=== PATIENT | female | born 1935 | race Caucasian/White ===

== ENCOUNTER 2016-12-16 07:25 | Emergency (ER) | payer MEDICARE ==
[~2016-12-16] VITALS: Ht 157.5 cm; Wt 65.0 kg
[~2016-12-16 07:25] MED LIST: ACTO35TA PO; DARV PO; FOSI20 PO; NAPR550 PO; PROT40TA PO; VAGI25TA4 PV
[2016-12-16 07:27] VITALS: BP 173/70; PULSE 76; RESP 20; TEMP 98.3; O2SAT 97
--- NOTE | 2016-12-16 07:55 | PD ---
HPI Chief Complaint: Complaint Time Seen by Provider: 07:49 Travel History International Travel<30 days: No Contact w/Intl Traveler<30days: No Traveled to known affect area: No History of Present Illness HPI 81-year-old female presents the emergency department with history of dysuria, chills, and hematuria since yesterday. Patient denies nausea, vomiting , or abdominal pain. She has no flank pain. Patient has no history of kidney stones. He can states she's had similar symptoms in the past with urinary tract infections. She resides in [place]. Her dysuria pain is 2/10 at best. She is allergic to amoxicillin, Cipro, and Zithromax. PFSH Past Medical History Diminished Hearing: No Genitourinary: Yes (UTI) Hypertension: Yes Tetanus Vaccination: > 5 Years Influenza Vaccination: No ?: Not Menopausal: Yes Past Surgical History Other Surgery: Yes (VARICOSE VEIN) Social History Alcohol Use: Yes (seldom) Tobacco Use: No Substance Use: No Allergies-Medications (Allergen,Severity, Reaction): Coded Allergies: Amoxicillin (Verified Allergy, Unknown, UNKNOWN , 12/16/16) Cipro (Verified Allergy, Unknown, UNKNOWN , 12/16/16) Zithromax (Verified Allergy, Unknown, UNKNOWN, 12/16/16) Reported Meds & Prescriptions Reported Meds & Active Scripts Active Pyridium (Phenazopyridine HCl) 100 Mg Tab 100 Mg PO Q8H PRN Macrodantin (Nitrofurantoin Macrocrystal) 100 Mg Cap 100 Mg PO BID Reported Losartan (Losartan Potassium) 50 Mg Tab 50 Mg PO DAILY Vagifem Vaginal (Estradiol Vaginal) 10 Mcg Vagtab 10 Mcg VAGINAL 2XWEEK Review of Systems Except as stated in HPI: all other systems reviewed are Neg General / Constitutional: Positive: Chills, No: Fever Eyes: No: Visual changes HENT: No: Headaches Cardiovascular: No: Chest Pain or Discomfort Respiratory: No: Shortness of Breath Gastrointestinal: No: Abdominal Pain Genitourinary: Positive: Dysuria, Hematuria, No: Urgency, Frequency, Nocturia Musculoskeletal: No: Pain Skin: No Rash Neurologic: No: Weakness Psychiatric: No: Depression Endocrine: No: Polydipsia Hematologic/Lymphatic: No: Easy Bruising Physical Exam Narrative GENERAL: Patient appears no acute distress. SKIN: Warm and dry. Normal color. Normal turgor. HEAD: Atraumatic. Normocephalic. EYES: Pupils equal and round. No scleral icterus. No injection or drainage. ENT: No nasal bleeding or discharge. Mucous membranes pink and moist. Pharynx is clear. Airway is patent. NECK: Trachea midline. Supple and nontender. CARDIOVASCULAR: Regular rate and rhythm. RESPIRATORY: No accessory muscle use. Clear to auscultation. Breath sounds equal bilaterally. GASTROINTESTINAL: Abdomen soft, non-tender, nondistended. Hepatic and splenic margins not palpable. No CVA tenderness. MUSCULOSKELETAL: Extremities without clubbing, cyanosis, or edema. No obvious deformities. NEUROLOGICAL: Awake and alert. No obvious cranial nerve deficits. Motor grossly within normal limits. Five out of 5 muscle strength in the arms and legs. Normal speech. PSYCHIATRIC: Appropriate mood and affect; insight and judgment normal. Data Data Last Documented VS Vital Signs Date Time Temp Pulse Resp B/P Pulse Ox O2 Delivery O2 Flow Rate FiO2 12/16/16 07:27 98.3 76 20 173/70 97 Room Air Orders Urinalysis - C+S If Indicated (12/16/16 07:35) Urine Culture (12/16/16 07:50) Labs Laboratory Tests Test 12/16/16 07:50 Urine Color RED Urine Turbidity HAZY Urine pH 7.0 Urine Specific Ralls 1.016 Urine Protein 300 mg/dL Urine Glucose (UA) NEG mg/dL Urine Ketones NEG mg/dL Urine Occult Blood MOD Urine Nitrite NEG Urine Bilirubin NEG Urine Urobilinogen LESS THAN 2.0 MG/DL Urine Leukocyte Esterase SMALL Urine RBC /hpf Urine WBC /hpf Urine WBC Clumps RARE Microscopic Urinalysis Comment CULTURE INDICATED MDM Medical Decision Making Medical Screen Exam Complete: Yes Emergency Medical Condition: Yes Differential Diagnosis Dysuria. Urinary tract infection. Hematuria. Possible kidney or bladder cancer. Narrative Course Patient is medically stable at time of exam. Urine is collected and sent to the lab. Patient is felt to have a urinary tract infection with hematuria. Patient will be treated with Macrodantin 100 mg twice a day 7 days. Patient is also given Pyridium 100 mg 3 times a day when necessary dysuria. # 12. Urine culture is pending. Patient should follow-up with her primary care physician later this week to ensure improvement. Patient can return to the emergency Department with worsening symptoms if necessary. Diagnosis Primary Impression: Urinary tract infection Qualified Code: N30.01 - Acute cystitis with hematuria Referrals: Primary Care Physician call for appointment Patient Instructions: Dysuria (ED), General Instructions, Hematuria (ED) Additional Instructions: Patient is felt to have a urinary tract infection with hematuria. Patient will be treated with Macrodantin 100 mg twice a day 7 days. Patient is also given Pyridium 100 mg 3 times a day when necessary dysuria. # 12. Urine culture is pending. Patient should follow-up with her primary care physician later this week to ensure improvement. Patient can return to the emergency Department with worsening symptoms if necessary. Med/Other Pt SpecificInfo: Prescription(s) given Scripts Phenazopyridine (Pyridium)100 Mg [id number] Mg PO Q8H PRN (DYSURIA) #12 TAB Ref 0 Prov:Sean Gruber MD 12/16/16 Nitrofurantoin Macrocrystal (Macrodantin)100 Mg Hir526 Mg PO BID #14 CAP Ref 0 Prov:Sean Gruber MD 12/16/16 Disposition: 01 DISCHARGE HOME Condition: Stable Daljit Burleson Dec 16, 2016 07:55
[2016-12-16] MEDS ORDERED: PHEN0.4T PO (07:56)
[2016-12-16] MEDS ORDERED: MACR100C3 PO (07:56)
[2016-12-16] MEDS ORDERED: FOSI20TA PO (08:06)
[2016-12-16] MEDS ORDERED: VAGI10TA VAGINAL (08:06)
[2016-12-16] MEDS ORDERED: LOSA50TA PO (08:07)
[2016-12-16 08:21] LABS: BLOOD, URINE MOD (NEG); GLUCOSE,URINE NEG (NEG); KETONE, URINE NEG (NEG); NITRITE,URINE NEG (NEG)
[2016-12-16 08:23] LABS: COMMENT (UR) CULTURE INDICATED; CULTURE IF INDICATED CULTURE INDICATED; URINE COLOR RED (YELLW/STRAW)
== END 2016-12-16 08:34 | disposition home or self-care (01) ==
LOC: NEPK 07:25
DX: N30.01 Acute cystitis with hematuria (principal); B96.20 Unspecified Escherichia coli [E. coli] as the cause of diseases classified elsewhere
CPT/HCPCS: 81001; 87077; 87086; 87186; 99284

== ENCOUNTER 2017-04-07 18:27 | Emergency (ER) | payer MEDICARE ==
[~2017-04-07] VITALS: Ht 154.9 cm; Wt 65.5 kg
[~2017-04-07 18:27] MED LIST changes: -ACTO35TA PO; -DARV PO; -FOSI20 PO; +LOSA50TA PO; +MACR100C3 PO; -NAPR550 PO; +PHEN0.4T PO; -PROT40TA PO; +VAGI10TA VAGINAL; -VAGI25TA4 PV
[2017-04-07 18:37] VITALS: BP 177/74; PULSE 60; RESP 18; TEMP 97.7; O2SAT 97
[2017-04-07] MEDS ORDERED: ZOFR4TAB PO (19:26)
[2017-04-07] MEDS ORDERED: HYDR-3533 PO (19:26)
--- NOTE | 2017-04-07 19:26 | PD ---
HPI Chief Complaint: Abdominal Pain Time Seen by Provider: 18:58 Travel History International Travel<30 days: No Contact w/Intl Traveler<30days: No Traveled to known affect area: No History of Present Illness HPI The patient is an 81-year-old female that complains of right upper quadrant pain earlier tonight that lasted about an hour. The pain did not radiate to her scapula. She says she did not have any nausea or vomiting. The patient had an ultrasound at [facility] in [facility] but the results are unknown. She had an ultrasound here in 2007 which was unremarkable. She has no pain, nausea, vomiting or abdominal tenderness now. She denies any fever. She has basically asymptomatic. She went to an urgent care Center and they told her to get a CAT scan here. PFS Past Medical History Cardiovascular Problems: Yes (HTN) Diminished Hearing: No Genitourinary: Yes (UTI) Hypertension: Yes Tetanus Vaccination: Unknown ?: Not Menopausal: Yes Past Surgical History Surgical History: No Previous Surgery Other Surgery: Yes (VARICOSE VEIN) Social History Alcohol Use: Yes (seldom) Tobacco Use: No Substance Use: No Allergies-Medications (Allergen,Severity, Reaction): Coded Allergies: amoxicillin (Unverified Allergy, Unknown, UNKNOWN , 01/29/17) azithromycin (Unverified Allergy, Unknown, UNKNOWN, 01/29/17) ciprofloxacin (Unverified Allergy, Unknown, UNKNOWN , 01/29/17) Reported Meds & Prescriptions Reported Meds & Active Scripts Active Reported Losartan (Losartan Potassium) 50 Mg Tab 50 Mg PO DAILY Vagifem Vaginal (Estradiol Vaginal) 10 Mcg Vagtab 10 Mcg VAGINAL 2XWEEK Review of Systems Except as stated in HPI: all other systems reviewed are Neg Physical Exam Narrative GENERAL: The patient is alert, oriented 3 in no apparent distress. Her vital signs show blood pressure 177/74 but otherwise normal. SKIN: Focused skin assessment warm/dry. HEAD: Atraumatic. Normocephalic. EYES: Pupils equal and round. No scleral icterus. No injection or drainage. ENT: No nasal bleeding or discharge. Mucous membranes pink and moist. NECK: Trachea midline. No JVD. CARDIOVASCULAR: Regular rate and rhythm. No murmur appreciated. RESPIRATORY: No accessory muscle use. Clear to auscultation. Breath sounds equal bilaterally. GASTROINTESTINAL: Abdomen soft, non-tender, nondistended. Hepatic and splenic margins not palpable. No guarding or rebound is present. MUSCULOSKELETAL: No obvious deformities. No clubbing. No cyanosis. No edema. NEUROLOGICAL: Awake and alert. No obvious cranial nerve deficits. Motor grossly within normal limits. Normal speech. PSYCHIATRIC: Appropriate mood and affect; insight and judgment normal. Data Data Last Documented VS Vital Signs Date Time Temp Pulse Resp B/P (MAP) Pulse Ox O2 Delivery O2 Flow Rate FiO2 04/07/17 18:37 97.7 60 18 177/74 (108) 97 MDM Medical Decision Making Medical Screen Exam Complete: Yes Emergency Medical Condition: Yes Medical Record Reviewed: Yes Differential Diagnosis Gallbladder colic resolved, abdominal pain unknown etiology which has resolved, ulcer pain, nephrolithiasis pain resolved, Narrative Course The patient has abdominal pain which is resolved. She was offered a CAT scan because the urgent care center recommended one. She is totally asymptomatic and a CAT scan is very unlikely to change treatment. She has an ultrasound in [facility] which is more recent but the results of this are unknown. She should follow-up with her primary care physician who is on the staff at [facility] regarding this pain. She is totally asymptomatic at this time and can go home. She declined the CAT scan. Diagnosis Primary Impression: Abdominal pain of unknown etiology Additional Instructions: Follow-up with Dr. Prince Pitts about this abdominal pain. It may be that he will want a CAT scan or repeat ultrasound. We will give you a prescription for Lortab 5 and Zofran should this pain come on again. Med/Other Pt SpecificInfo: Prescription(s) given Scripts Ondansetron (Zofran) 4 Mg Tab 4 MG PO Q6HR Y for NAUSEA OR VOMITING, #21 TAB 0 Refills Prov: Zhou Lucas MD 04/07/17 Hydrocodone-Acetaminophen (Lortab) 5-325 Mg Tab 1 TAB PO Q4H Y for PAIN, #20 TAB 0 Refills Prov: Zhou Lucas MD 04/07/17 Disposition: 01 DISCHARGE HOME Condition: Stable Zhou Lucas MD Apr 07, 2017 19:26
== END 2017-04-07 19:40 | disposition home or self-care (01) ==
LOC: PHED 18:27
DX: R10.11 Right upper quadrant pain (principal); I10 Essential (primary) hypertension
CPT/HCPCS: 99284

== ENCOUNTER → 2017-06-13 | Day surgery (SDC) | payer MEDICARE ==
[~2017-06-13] VITALS: Ht 160 cm; Wt 63.5 kg
[~2017-06-13] MED LIST changes: +CHLORHEXIDINE GLUCONATE 2 % 1 PACK (2 CLOTHS) TOPICAL PRN; +HYALURONIDASE/LIDOCAINE/BUPIVACAINE 5 ML SYR LEFT EYE ONE; +HYDR-3516 PO; +LACTATED RINGER'S 1000 ML IV PRN; +LIDOCAINE HCL 1% PF 30 ML VIAL ONE; -MACR100C3 PO; +METOPROLOL TARTRATE 25 MG TAB PO PRN; -PHEN0.4T PO; +POVIDONE IODINE 5% (ANTISEPSIS KIT) 4 APPLICATIONS EACH NARE PRN; +PROPARACAINE HCL 0.5% OPHT SOLN 15 ML BTL LEFT EYE ONE; +PROPOFOL 200 MG/20 ML AMP ONE; +SODIUM CHLORID 0.9% 500 ML INJ 500 ML ONE; +TOBRAMYCIN/DEXAMETHASONE OPTH OINT 3.5 GM TUBE ONE; +VITATAB11 PO; +ZOFR4TAB PO
[2017-06-13 08:02] VITALS: PULSE 55
[2017-06-13] MEDS: PHENYLEPHRINE HCL 10% OPTH SOLN 5 ML BTL LEFT EYE SCH ×4 (08:05→08:20)
[2017-06-13] MEDS: TROPICAMIDE 1% OPHT SOLN 15 ML BTL LEFT EYE SCH ×4 (08:05→08:20)
[2017-06-13] MEDS: FLURBIPROFEN 0.03% OPHT SOLN 2.5 ML BTL LEFT EYE SCH ×4 (08:05→08:20)
[2017-06-13] MEDS: CYCLOPENTOLATE HCL 1% OPHT SOLN 2 ML BTL LEFT EYE SCH ×4 (08:05→08:20)
[2017-06-13 08:34] VITALS: PULSE 53
[2017-06-13 09:42] VITALS: TEMP 96.8
[2017-06-13 10:00] VITALS: BP 137/62; PULSE 47; RESP 14; O2SAT 99
--- NOTE | 2017-06-13 10:37 | MP ---
cc: DEEPAK SAGASTUME M.D. Corrected Copy: 06/21/17 [facility] # [id number] DATE: 06/13/2017 PREOPERATIVE DIAGNOSIS: Visually significant cataract left eye. POSTOPERATIVE DIAGNOSIS: Visually significant cataract left eye. OPERATION: Phacoemulsification with posterior chamber lens implantation, left eye. SURGEON: Deepak Sagastume MD ANESTHESIA: Retrobulbar with MAC. COMPLICATIONS: None. PROCEDURE: After informed consent was obtained, the patient was brought into the operative suite and placed on appropriate monitors by the Anesthesia Service. The patient had received a prior retrobulbar injection of local anesthetic by the Anesthesia Service in the holding area. The patient's operative eye was then prepped and draped in the usual sterile fashion. A wire lid speculum was placed. A paracentesis incision was made in the peripheral cornea with a 1 mm sarah keratome. The anterior chamber was filled with viscoelastic. The anterior chamber was then entered through a stepped, clear corneal incision using a sharp 3 mm sarah keratome. A circular tear capsulorrhexis was then made with a bent needle cystitome. Following hydrodissection of the lens nucleus with balanced saline, phacoemulsification of the nucleus was performed using a modified chopping technique. The remaining cortex was removed with irrigation/aspiration. The prior two procedures were both performed using the handpieces of the [employer] phaco unit. The capsular bag was then filled with viscoelastic. The intraocular lens was then injected into the capsular bag and positioned. The type of intraocular lens and its power can be found elsewhere in this chart. The remaining viscoelastic was then removed from the anterior chamber with the IA handpiece. The anterior chamber was reformed with balanced saline. The wound was then closed securely with stromal hydration. It was found to be watertight to an intraocular pressure of at least 30 mmHg by palpation. A small amount of balanced salt solution was then removed through the paracentesis site and the intraocular pressure at the end of the case was approximately 20 by palpation. All drapes were then removed. TobraDex ointment was then placed in the eye, which was closed beneath a semi-pressure patch dressing. The patient tolerated this procedure well and left the operating room awake and alert. The patient is to follow-up in my office in the morning. MD MARTHA Lynch/SSB /9:46 AM /8:49 AM
== END | disposition home or self-care (01) ==
LOC: PHSDC 06:33
PROVIDERS: ATTEND Optometrist Occupational Vision
DX: H26.9 Unspecified cataract (principal)
CPT/HCPCS: 00142; 66984; J7040; V2632

== ENCOUNTER → 2017-08-01 | Day surgery (SDC) | payer MEDICARE ==
[~2017-08-01] VITALS: Ht 157.5 cm; Wt 64.0 kg
[~2017-08-01] MED LIST changes: +CYCLOPENTOLATE HCL 1% OPHT SOLN 2 ML BTL RIGHT EYE SCH; +FLURBIPROFEN 0.03% OPHT SOLN 2.5 ML BTL RIGHT EYE SCH; -HYALURONIDASE/LIDOCAINE/BUPIVACAINE 5 ML SYR LEFT EYE ONE; +HYALURONIDASE/LIDOCAINE/BUPIVACAINE 5 ML SYR RIGHT EYE ONE; +PHENYLEPHRINE HCL 10% OPTH SOLN 5 ML BTL RIGHT EYE SCH; -PROPARACAINE HCL 0.5% OPHT SOLN 15 ML BTL LEFT EYE ONE; +PROPARACAINE HCL 0.5% OPHT SOLN 15 ML BTL RIGHT EYE ONE; -SODIUM CHLORID 0.9% 500 ML INJ 500 ML ONE; +SODIUM CHLORID 0.9% 500 ML IV PRN; +TROPICAMIDE 1% OPHT SOLN 15 ML BTL RIGHT EYE SCH; -VITATAB11 PO; -ZOFR4TAB PO
[2017-08-01 07:45] VITALS: PULSE 43
[2017-08-01 08:20] VITALS: PULSE 53
[2017-08-01 09:40] VITALS: BP 138/46; PULSE 50; RESP 16; TEMP 97.2; O2SAT 98
--- NOTE | 2017-08-02 09:48 | MP ---
cc: DEEPAK SAGASTUME M.D. [facility] NUMBER: [id number] DATE OF SURGERY: 08/01/2017 PREOPERATIVE DIAGNOSIS: Visually significant cataract right eye. POSTOPERATIVE DIAGNOSIS: Visually significant cataract right eye. OPERATION: Phacoemulsification with posterior chamber lens implantation, right eye. SURGEON: Deepak Sagastume MD ANESTHESIA: Retrobulbar with MAC. COMPLICATIONS: None. PROCEDURE: After informed consent was obtained, the patient was brought into the operative suite and placed on appropriate monitors by the Anesthesia Service. The patient had received a prior retrobulbar injection of local anesthetic by the Anesthesia Service in the holding area. The patient's operative eye was then prepped and draped in the usual sterile fashion. A wire lid speculum was placed. A paracentesis incision was made in the peripheral cornea with a 1 mm sarah keratome. The anterior chamber was filled with viscoelastic. The anterior chamber was then entered through a stepped, clear corneal incision using a sharp 3 mm sarah keratome. A circular tear capsulorrhexis was then made with a bent needle cystitome. Following hydrodissection of the lens nucleus with balanced saline, phaco-emulsification of the nucleus was performed using a modified chopping technique. The remaining cortex was removed with irrigation/aspiration. The prior two procedures were both performed using the handpieces of the [employer] phaco unit. The capsular bag was then filled with viscoelastic. The intraocular lens was then injected into the capsular bag and positioned. The type of intraocular lens and its power can be found elsewhere in this chart. The remaining viscoelastic was then removed from the anterior chamber with the IA handpiece. The anterior chamber was reformed with balanced saline. The wound was then closed securely with stromal hydration. It was found to be watertight to an intraocular pressure of at least 30 mmHg by palpation. A small amount of balanced salt solution was then removed through the paracentesis site and the intraocular pressure at the end of the case was approximately 20 by palpation. All drapes were then removed. TobraDex ointment was then placed in the eye, which was closed beneath a semi-pressure patch dressing. The patient tolerated this procedure well and left the operating room awake and alert. The patient is to follow-up in my office in the morning. MD Stacey Lynch /10:17 AM /9:39 AM
== END | disposition home or self-care (01) ==
LOC: PHSDC 06:55
PROVIDERS: ATTEND Optometrist Occupational Vision
DX: H25.811 Combined forms of age-related cataract, right eye (principal)
CPT/HCPCS: 00142; 66984; J7040; V2632